=== PATIENT | female | born 1945 | race Caucasian/White ===

== ENCOUNTER 2018-07-27 08:59 | Observation (INO) ==
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
[2018-07-27] MEDS ORDERED: FLUMAZENIL 0.1 MG/ML ML IV ONE ×2 (09:25→11:29)
--- NOTE | 2018-07-27 09:26 | Cat Scan Report ---
CLINICAL INFORMATION: Code stroke COMPARISON: None. TECHNIQUE: Axial noncontrast-enhanced images through the brain. FINDINGS: No acute intracranial hemorrhage. No intra-axial hematoma. No focal intra-axial attenuation abnormality or localized mass effect. No midline shift. Brain volume is within normal limits for age. Brainstem and cerebellum are negative. No extra-axial, intracranial abnormality. No subdural hematoma. No subarachnoid hemorrhage. No calvarial fracture. No lytic lesion. Temporal bones are negative. This report was called to the emergency room, 07/27/2018, 0910 IMPRESSION: Negative noncontrast enhanced brain CT scan. No acute or focal abnormality The exam was performed using radiation dose optimization techniques including, but not limited to, automated exposure control, adjustment of the mA and/or kV according to patient size and use of iterative reconstruction technique. Interpreted and Authenticated by: Caesar Jameson 07/27/18
[2018-07-27 10:07] LABS: Basophils # (Auto) 0 K/mcL (0.0-0.3); Basophils % (Auto) 0.2 % (0.0-2.0); Eosinophils # (Auto) 0.1 K/mcL (0.0-0.7); Eosinophils % (Auto) 0.5 % (0.0-7.0); Granulocytes % (Auto) 79.2 % (38.0-78.0); Lymphocytes # (Auto) 1.6 K/mcL (1.5-4.8); Lymphocytes % (Auto) 14.3 % (15.5-49.0); Mean Cell Volume 95.7 fL (80.0-100.0); Mean Corpuscular HGB Conc 34.1 g/dL (31.0-36.0); Mean Corpuscular Hemoglobin 32.6 pg (26.0-34.0); Monocytes # (Auto) 0.6 K/mcL (0.1-0.9); Monocytes % (Auto) 5.8 % (1.0-12.0); Platelet Count 195 K/mcL (140-440); RBC 3.69 M/mcL (4.00-5.20)
[2018-07-27 10:25] LABS: ALT/SGPT 27 U/l (0-40); Albumin 4.4 gm/dL (3.2-5.2); Albumin/Globulin Ratio 1.3 (1.0-2.3); Alkaline Phosphatase 87 U/L (39-117); Blood Urea Nitrogen 53 mg/dl (8-23)
[2018-07-27 11:29] LABS: Appearance,Urine CLOUDY; Bacteria,Urine FEW /hpf (0); Bilirubin,Urine NEG (NEG); Color,Urine YELLOW; Glucose,Urine (UA) NEGATIVE (NEG); Leukocyte Esterase,Urine 500 /uL (NEG); Mucus,Urine FEW /hpf (0); Protein,Urine NEG (NEG); Specific Gravity,Urine 1.015 (1.000-1.035); Urine Blood NEG mg/dL (<0.03); Urine Hyaline Cast 16 /lpf (0-2); Urine RBC 2 /hpf (0-1); Urine Squamous Epithelial Cell 3 /hpf (0-4); Urine Transitional Epi Cells < 1 /hpf (0-2); Urine WBC > 182 /hpf (0-4); Urobilinogen,Urine NEG (NEG)
[2018-07-27] MEDS ORDERED: cefTRIAXone 1 GM VIAL IV ONE (12:01)
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
[2018-07-27] MEDS ORDERED: ACETAMINOPHEN 325 MG TABLET PO PRN (14:35)
[2018-07-27] MEDS ORDERED: FLUMAZENIL 0.1 MG/ML ML IV PRN (14:35)
[2018-07-27] MEDS ORDERED: ONDANSETRON 4 MG/2 ML VIAL IV PRN (14:35)
[2018-07-27] MEDS ORDERED: NALOXONE HCL 0.4 MG/ML VIAL IV PRN (14:35)
[2018-07-27] MEDS: 0.9 % SODIUM CHLORIDE 1,000 ML IV SCH (15:13)
[2018-07-27] MEDS: 0.9 % SODIUM CHLORIDE 10 ML SYRINGE IV SCH ×2 (15:14→20:22)
[2018-07-27] MEDS ORDERED: FAMOTIDINE/PF 20 MG/2 ML VIAL IV SCH (21:00)
[2018-07-28] MEDS: 0.9 % SODIUM CHLORIDE 1,000 ML IV SCH ×2 (01:10→09:43)
[2018-07-28 05:33] LABS: Blood Urea Nitrogen 43 mg/dl (8-23)
[2018-07-28] MEDS: 0.9 % SODIUM CHLORIDE 10 ML SYRINGE IV SCH ×2 (05:51→13:13)
[2018-07-28] MEDS ORDERED: ENOXAPARIN 30 MG/0.3 ML SYRINGE SQ SCH (09:00)
[2018-07-28] MEDS ORDERED: cefTRIAXone 1 GM VIAL IV SCH (09:00)
--- NOTE | 2018-07-28 09:09 | Discharge Summary ---
Medical - DS: Prov Patient information: Note initiated : 07/28/18 at 9:06 am Service Date, if different from initiated Date: [] Patient: Emely Hanna 72 y/o F admitted on 07/27/18 for Decreased LOC. Date of admission: 07/27/18 14:04 Discharge date: 07/28/18 Primary care physician: Bisi Melara Admitting clinician: Suni Sanchez Consults: 07/27/18 Consult to Physician [CONS] Stat Comment: Consulting Provider: Suni Sanchez Reason For Exam: Physician to Consult Discharging clinician: Suni Sanchez Medical - DS: Meds - Discharge Medications Prescriptions: Cephalexin [Keflex] 500 mg PO BID #10 cap Active and Home Medications: Home Medications ALPRAZolam [Xanax] 3 mg PO QHS 11/23/15 [History Confirmed 07/27/18 Last Taken 07/27/18 03:00] Gabapentin [Neurontin] 300 mg PO QAM 11/23/15 [History Confirmed 07/27/18 Last Taken 07/26/18 09:00] Metoprolol Tartrate [Lopressor] 100 mg PO DAILY 11/23/15 [History Confirmed 08/05 Last Taken 07/26/18] Acetaminophen W/Codeine #3 [Tylenol #3] 1 tab PO Q4-6HP PRN 04/29/18 [History Confirmed 07/27/18 Last Taken 07/27/18 03:00 2 tabs] Triamterene/Hydrochlorothiazid [Triamterene-Hctz 75-50 mg Tab] 1 each PO DAILY 04/29/18 [History Confirmed 07/27/18 Last Taken 07/26/18] Albuterol Sulfate [Ventolin] 2 puff INH Q4-6HP PRN 07/27/18 [History Confirmed 07/27/18 Last Taken 07/27/18 14:00] Citalopram [Celexa] 20 mg PO DAILY 07/27/18 [History Confirmed 07/27/18 Last Taken 07/25/18] Gabapentin [Neurontin] 400 mg PO HS 07/27/18 [History Confirmed 07/27/18 Last Taken 07/27/18 03:00] Ketorolac Tromethamine [Acular] 5 ml OD Q6H 07/27/18 [History Confirmed Last Taken 07/27/18 03:00] Losartan [Cozaar] 100 mg PO QHS 07/27/18 [History Confirmed 07/27/18 Last Taken 07/27/18 03:00] Medical - DS: Hosp Hospital course: Presentation: Ms. Hanna is a 72 year old F with a history of depression, bipolar disorder, hypertension, frequent urinary tract infections, insomnia, on chronic benzodiazepines and also taking Tylenol #3 who presents to the emergency department after being found unresponsive. History is obtained in speaking with Dr. Rucker from the ED, reviewing old records and some limited information available from the patient. Apparently the patient's significant other found her curled up on the kitchen floor unresponsive this morning. He called EMS and she was brought to the hospital. She uses Xanax chronically, at bed time, is able to tell me she took 3 mg last night. Apparently she also sleeps walks, sometimes prepares meals ( per report), she is unsure if she may have taken extra Xanax overnight. She also took 2 Tylenol #3 last evening for pain in her left Achilles tendon. In the emergency department, she had no change in her condition after the administration of Narcan. She woke up after she received flumazenil, however that wore off after about 30 minutes. She received further doses of flumazenil , still drifts off to sleep, desaturates and become hypoxic. Of note, she had a similar presentation here on May 24 when her significant other found or 5:30 in the morning speaking unintelligibly and being confused. She also responded to flumazenil at that time, but was eventually able to go home from the ED. Patient tells me that she's been on Xanax for a long time. States she has used Tylenol #3 off and on since she was 18 years old. Currently is complaining of Achilles tendinitis. Also has pain in her left knee, but has been told she cannot have that replaced until she loses weight. It is unclear on the amount of Xanax she took last night, where there is a usual dose or more than usual, is also unclear how frequently she is using the Tylenol #3. She really cannot elaborate, as her thought processes are tangential and she rambles on during her responses. Patient currently is complaining of left Achilles pain. States she has a hiatal hernia for which she takes Tylenol #3, then attempts to correct herself but drifts off. She denies any shortness of breath, no chest pain. She does have urinary frequency which is common for her, it's unclear if this is changed much recently. She was found to have a UTI in the ED. Hospital course: Patient became more alert during the afternoon, displayed some pressured speech , would ramble in conversation, but would fall asleep into a deep sleep and desaturates requiring supplemental oxygen. Overnight, the patient was awake most the and night, when she was asleep she no longer required supplemental oxygen. She was deeply asleep on the morning of discharge, later woke up, was awake, alert. She is not requiring supplemental oxygen. I counseled her on the use of her Xanax. Encouraged to follow-up with primary care to consider tapering off the medication. She also appears to have some manic characteristics, may benefit from referral to mental health. Apparently she has been hospitalized at least once in the past for depressive symptoms and is diagnosed as bipolar 2 from a psychiatrist in [place]. I've asked her stop taking Tylenol No. 3. She had a recent fall at home, is complaining of some Achilles pain. I've asked her to follow-up with primary care in this regard. Patient evidence of urinary tract infection and will be discharged with antibiotics. Patient has chronic kidney disease, she had evidence of wine depletion with creatinine 1.7 on admission, it was back down to her baseline of 1.3 at discharge. Discharge diagnosis: Benzodiazepine overdose/toxicity, unintentional Secondary discharge diagnosis: Acute hypoxic respiratory failure, resolved UTI/acute cystitis Bipolar 2 - Time Spent with Patient Total time spent providing and/or coordinating discharge services: Greater than 30 minutes Medical - DS: Exam - Constitutional Vitals: Vital Signs Temp Pulse Resp BP Pulse Ox 07/28/18 06:01 75 16 113/55 94 07/28/18 05:01 73 16 130/61 93 07/28/18 04:01 98.4 F 72 16 137/70 95 07/28/18 03:01 73 12 130/65 95 07/28/18 02:01 72 16 132/65 96 07/28/18 02:00 96 07/28/18 01:01 77 15 140/63 94 07/28/18 00:00 99.3 F H 18 150/66 96 07/27/18 23:01 81 14 111/61 96 07/27/18 22:00 77 18 124/67 98 07/27/18 21:00 74 23 H 110/52 93 07/27/18 20:00 97.8 F 74 14 122/59 96 07/27/18 19:59 15 07/27/18 19:41 100 07/27/18 19:17 73 15 104/40 94 07/27/18 18:02 78 18 114/97 94 07/27/18 17:01 69 13 144/69 97 07/27/18 16:01 98.4 F 66 18 126/64 98 07/27/18 15:01 66 16 133/62 100 07/27/18 14:19 69 16 136/74 96 07/27/18 14:15 97.6 F 77 16 141/128 100 07/27/18 14:10 98.4 F 69 17 105/59 97 07/27/18 14:04 97.6 F 99 07/27/18 13:56 69 17 97 07/27/18 13:47 67 11 L 105/59 99 07/27/18 13:32 66 97/86 97 07/27/18 13:02 66 108/76 98 07/27/18 12:55 66 96 07/27/18 12:46 65 14 118/99 91 07/27/18 12:32 65 13 109/57 95 07/27/18 12:17 69 18 117/59 100 07/27/18 12:05 162 H 16 159/126 84 L 07/27/18 11:47 67 14 128/60 91 07/27/18 11:32 66 12 123/65 92 07/27/18 11:17 67 13 125/57 90 07/27/18 11:02 67 13 115/56 92 07/27/18 11:01 65 12 92 07/27/18 10:52 72 17 168/85 95 07/27/18 10:32 69 14 127/62 97 07/27/18 10:17 66 13 114/73 98 07/27/18 10:02 60 12 122/63 95 07/27/18 09:47 59 L 13 123/64 98 09/09/18 09:32 59 L 13 125/75 98 Intake and Output 07/27/18 07/28/18 07/28/18 21:59 05:59 13:59 Intake Total 600 / 600 1295 / 1295 Output Total 300 / 300 300 / 300 Balance 300 / 300 995 / 995 Intake: IV 995 / 995 Sodium Chloride 0.9% 1,000 ml @ 995 / 995 100 mls/hr IV .Q10H [facility] Rx#: [id number] Oral 600 / 600 300 / 300 Output: Void Amount 300 / 300 300 / 300 Other: Meal Dinner Percent of Meal Consumed 100% Feeding Ability Independent Urine Appearance Clear Urine Color Bright Yellow Bright Yellow Urine Odor Normal Normal Stool Size Large Large Stool Color Brown Brown Stool Consistency Soft Formed Formed # Voids 1 1 # Bowel Movements 1 1 Weight 201 lb 5 oz Additional comments: General: In bed in no acute distress Chest: Clear, good respiratory effort Cardiovascular: Regular, no murmur Abdomen: Soft, nontender Neuro: Alert, oriented to person, place, situation. Moves all extremities equally Psychiatric: Speech is mildly pressured, no suicidal ideation. Medical - DS: Data Labs on day of discharge: Labs from last 24 hours 07/28/18 07/27/18 07/27/18 03:15 10:58 09:44 WBC RBC Hgb Hct POC Hct MCV MCH MCHC RDW Plt Count MPV Gran % Lymph % (Auto) [place] % (Auto) Eos % (Auto) Baso % (Auto) Gran # Lymph # (Auto) [place] # (Auto) Eos # (Auto) Baso # (Auto) POC PT 13.5 POC INR 1.1 APTT 32 POC Sodium Sodium 135 POC Potassium Potassium 4.0 POC Chloride Chloride 97 Carbon Dioxide 26 POC Total CO2 Anion Gap 12.0 POC BUN BUN 43 H Creatinine 1.3 H POC Creatinine GFR Calculation 41 Glucose 89 POC Glucose Calcium 8.3 L POC WB Ioniz Calcium Total Bilirubin AST ALT Alkaline Phosphatase Troponin T Total Protein Albumin Globulin Albumin/Globulin Ratio Urine Color Yellow Urine Appearance Cloudy Urine pH 5.0 Ur Specific [place] 1.015 Urine Protein Neg Urine Glucose (UA) Negative Urine Ketones Neg Urine Occult Blood Neg Urine Nitrate Pos A Urine Bilirubin Neg Urine Urobilinogen Neg Ur Leukocyte Esterase 500 A Urine RBC 2 H Urine WBC > 182 H Ur Squamous Epith Cells 3 Ur Transition Epith Cell < 1 Urine Bacteria Few A Hyaline Casts 16 H Urine Mucus Few Ur Culture Indicated? Yes 07/27/18 07/27/18 07/27/18 09:44 09:43 09:43 WBC 10.9 RBC 3.69 L Hgb 12.0 Hct 35.3 L POC Hct 35.0 L MCV 95.7 MCH 32.6 MCHC 34.1 RDW 13.0 Plt Count 195 MPV 10.5 H Gran % 79.2 H Lymph % (Auto) 14.3 L [place] % (Auto) 5.8 Eos % (Auto) 0.5 Baso % (Auto) 0.2 Gran # 8.6 H Lymph # (Auto) 1.6 [place] # (Auto) 0.6 Eos # (Auto) 0.1 Baso # (Auto) 0 POC PT POC INR APTT POC Sodium 135 Sodium 135 POC Potassium 4.2 Potassium 4.3 POC Chloride 100 Chloride 96 Carbon Dioxide 24 POC Total CO2 23 Anion Gap 15.0 POC BUN 48 H BUN 53 H Creatinine 1.7 H POC Creatinine 1.9 H GFR Calculation 30 Glucose 113 H POC Glucose 113 H Calcium 9.3 POC WB Ioniz Calcium 1.08 L Total Bilirubin 0.3 AST 20 ALT 27 Alkaline Phosphatase 87 Troponin T < 0.01 Total Protein 7.7 Albumin 4.4 Globulin 3.3 Albumin/Globulin Ratio 1.3 Urine Color Urine Appearance Urine pH Ur Specific [place] Urine Protein Urine Glucose (UA) Urine Ketones Urine Occult Blood Urine Nitrate Urine Bilirubin Urine Urobilinogen Ur Leukocyte Esterase Urine RBC Urine WBC Ur Squamous Epith Cells Ur Transition Epith Cell Urine Bacteria Hyaline Casts Urine Mucus Ur Culture Indicated? - Imaging and Cardiology CT scan - head Additional comments: IMPRESSION: Negative noncontrast enhanced brain CT scan. No acute or focal abnormality Medical - DS: A/P - Patient/Caregiver Discharge Instructions Activity: resume usual activities as tolerated Diet: Regular Diet - Problem Maintenance (1) Encephalopathy, toxic Status: Resolved (2) Benzodiazepine (tranquilizer) overdose Status: Resolved Qualifiers: Encounter type: initial encounter Injury intent: accidental or unintentional Qualified Code(s): T42.4X1A - Poisoning by benzodiazepines, accidental (unintentional), initial encounter (3) Acute respiratory failure with hypoxia Status: Resolved (4) Chronic kidney disease, stage III (moderate) Status: Chronic (5) Acute cystitis without hematuria Status: Acute (6) Hypertension Status: Chronic Qualifiers: Hypertension type: essential hypertension Qualified Code(s): I10 - Essential (primary) hypertension - Follow up Plan Follow up with: Bisi Melara ARNP [Primary Care Provider] - (5-7 days) Disposition: Home, Self-Care Prognosis: Good Rehab Potential: Good Overall status at discharge: patient is back to baseline Medical - DS: Qual - VTE Deep Vein Thrombosis/Pulmonary Embolism Present on Admission: No
[2018-07-28] MEDS ORDERED: cefTRIAXone 1 GM in DEXTROSE 5% IN WATER 50 ML IV SCH (12:00)
[2018-07-28] MEDS ORDERED: FLUMAZENIL 0.1 MG/ML ML IV ONE (14:24)
[2018-07-28] MEDS ORDERED: ADENOSINE 3 MG/ML VIAL IV ONE (14:24)
== END 2018-07-28 14:25 | disposition home or self-care (01) ==
LOC: ED 08:59 → ICU 08:59
PROVIDERS: ADMIT Internal Medicine; ATTEND Internal Medicine